=== PATIENT | female | born 1950 | race Caucasian/White ===

== ENCOUNTER 2016-08-14 10:38 | Day surgery (SDC) | payer MEDICARE, OTHER ==
--- NOTE | ~2016-08-14 | EGD ---
EGD REPORT [facility] [address] [address] NAME: SARIKA BURR : [birth year] STATUS : REG [facility]#: [id number] AGE: 65 ADM/REG DATE : 08/14/16 MR#: [id number] REPORT SERV DATE: 08/14/16 DICTATED BY: ANNETTE RIVERA DATE: 08/14/16 REPORT STATUS : Draft TRANSCRIBED BY: [facility] DATE: 08/14/16 Endoscopy Center Patient Name: Sarika Burr Date of : 1950 Attending MD: DIANA RIVERA MD Procedure Date No Time: 08/14/2016 Procedure: Colonoscopy Indications: Follow-up for history of adenomatous polyps in the colon Referring MD: DWIGHT SANTOS Medicines: See the Anesthesia note for documentation of the administered medications Complications: No immediate complications. Estimated blood loss: Minimal. Procedure: Pre-Anesthesia Assessment: - ASA Grade Assessment: III - A patient with severe systemic disease. - Prior to the procedure, a History and Physical was performed, and patient medications and allergies were reviewed. The patient's tolerance of previous anesthesia was also reviewed. The risks and benefits of the procedure and the sedation options and risks were discussed with the patient. All questions were answered, and informed consent was obtained. Prior Anticoagulants: The patient has taken no previous anticoagulant or antiplatelet agents. After reviewing the risks and benefits, the patient was deemed in satisfactory condition to undergo the procedure. After I obtained informed consent, the scope was passed under direct vision. Throughout the procedure, the patient's blood pressure, pulse, and oxygen saturations were monitored continuously. The PCF [id number] was introduced through the anus and advanced to the cecum, identified by appendiceal orifice and ileocecal valve. The ileocecal valve, appendiceal orifice and rectum were photographed. The entire colon was examined. The colonoscopy was performed without difficulty. The patient tolerated the procedure well. The quality of the bowel preparation was adequate. Findings: The perianal and digital rectal examinations were normal. A flat, sessile polyp was found in the cecum. The polyp was large in size. This was biopsied with a cold jumbo forceps for histology. Area was successfully injected with 2 mL Spot (carbon black) for drug delivery. EGD REPORT [facility] [id number] [place]. [address] NAME: SARIKA BURR : [birth year] STATUS : REG [facility]#: [id number] AGE: 65 ADM/REG DATE : 08/14/16 MR#: [id number] REPORT SERV DATE: 08/14/16 DICTATED BY: ANNETTE RIVERA DATE: 08/14/16 REPORT STATUS : Draft [facility]ANSCRIBED BY: [facility] DATE: 08/14/16 A sessile polyp was found in the sigmoid colon. The polyp was 7 mm in size. The polyp was removed with a cold snare. Resection and retrieval were complete. Non-bleeding internal hemorrhoids were found during retroflexion and were Grade I (internal hemorrhoids that do not prolapse). Impression: - One large polyp in the cecum. Biopsied. Injected. - One 7 mm polyp in the sigmoid colon. Resected and retrieved. - Non-bleeding internal hemorrhoids. Recommendation: - Patient has a contact number available for emergencies. The signs and symptoms of potential delayed complications were discussed with the patient. Return to normal activities tomorrow. Written discharge instructions were provided to the patient. - Discharge patient to home. - Continue present medications. - Await pathology results. - Refer to a surgeon. Procedure Code(s): --- Professional --- 58141, Colonoscopy, flexible, proximal to splenic flexure; with removal of tumor(s), polyp(s), or other lesion(s) by snare technique 85550, 59, Colonoscopy, flexible, proximal to splenic flexure; with biopsy, single or multiple 95673, Colonoscopy, flexible, proximal to splenic flexure; with directed submucosal injection(s), any substance Diagnosis Code(s): --- Professional --- D12.5, Benign neoplasm of sigmoid colon D12.0, Benign neoplasm of cecum K64.0, First degree hemorrhoids Z86.010, Personal history of colonic polyps CPT copyright 2013 [employer]. All rights reserved. The codes documented in this report are preliminary and upon information coder review may be revised to meet current compliance requirements. DIANA RIVERA MD 08/14/2016 12:13 PM This report has been signed electronically. EGD REPORT [facility] [address] [address] NAME: SARIKA BURR : [birth year] STATUS : REG [facility] PAT#: [id number] AGE: 65 ADM/REG DATE : 08/14/16 MR#: [id number] REPORT SERV DATE: 08/14/16 DICTATED BY: ANNETTE RIVERA DATE: 08/14/16 REPORT STATUS : Draft TRANSCRIBED BY: [employer] [facility] DATE: 08/14/16 Number of Addenda: 0 Note Initiated On: 08/14/2016 11:34 AM Scope Withdrawal Time 0 hours 13 minutes 39 seconds [address] [id number]
--- NOTE | ~2016-08-14 | EGD ---
EGD REPORT [facility] [address] [address] NAME: SARIKA BURR : [birth year] STATUS : REG [facility]#: [id number] AGE: 65 ADM/REG DATE : 08/14/16 MR#: [id number] REPORT SERV DATE: 08/14/16 DICTATED BY: ANNETTE RIVERA DATE: 08/14/16 REPORT STATUS : Draft TRANSCRIBED BY: [facility] DATE: 08/14/16 Endoscopy Center Patient Name: Sarika Burr Date of : 1950 Attending MD: DIANA RIVERA MD Procedure Date No Time: 08/14/2016 Procedure: Upper GI endoscopy Indications: Gastro-esophageal reflux disease, gastric polyps Referring MD: DWIGHT SANTOS Medicines: See the Anesthesia note for documentation of the administered medications Complications: No immediate complications. Estimated blood loss: Minimal. Procedure: Pre-Anesthesia Assessment: - ASA Grade Assessment: III - A patient with severe systemic disease. - Prior to the procedure, a History and Physical was performed, and patient medications and allergies were reviewed. The patient's tolerance of previous anesthesia was also reviewed. The risks and benefits of the procedure and the sedation options and risks were discussed with the patient. All questions were answered, and informed consent was obtained. Prior Anticoagulants: The patient has taken no previous anticoagulant or antiplatelet agents. After reviewing the risks and benefits, the patient was deemed in satisfactory condition to undergo the procedure. After obtaining informed consent, the endoscope was passed under direct vision. Throughout the procedure, the patient's blood pressure, pulse, and oxygen saturations were monitored continuously. The GIF H190 [id number] was introduced through the mouth, and advanced to the third part of duodenum. The upper GI endoscopy was accomplished without difficulty. The patient tolerated the procedure well. Findings: The examined duodenum was normal. A few small sessile polyps with no stigmata of recent bleeding were found in the gastric body. These polyps were removed with a cold biopsy forceps. Resection and retrieval were complete. A 3 cm hiatus hernia was present. The examined esophagus was normal. Impression: - Normal examined duodenum. EGD REPORT [address] [address] NAME: SARIKA BURR : [birth year] STATUS : REG [facility] PAT#: [id number] AGE: 65 ADM/REG DATE : 08/14/16 MR#: [id number] REPORT SERV DATE: 08/14/16 DICTATED BY: ANNETTE RIVERA DATE: 08/14/16 REPORT STATUS : Draft TRANSCRIBED BY: [employer] [facility] DATE: 08/14/16 - A few gastric polyps. Resected and retrieved. - Hiatus hernia. - Normal esophagus. Recommendation: - Patient has a contact number available for emergencies. The signs and symptoms of potential delayed complications were discussed with the patient. Return to normal activities tomorrow. Written discharge instructions were provided to the patient. - Regular diet. - Discharge patient to home. - Continue present medications. - Await pathology results. Procedure Code(s): --- Professional --- 67213, Esophagogastroduodenoscopy, flexible, transoral; with biopsy, single or multiple Diagnosis Code(s): --- Professional --- K31.7, Polyp of stomach and duodenum K44.9, Diaphragmatic hernia without obstruction or gangrene K21.9, Gastro-esophageal reflux disease without esophagitis CPT copyright 2013 [employer] [employer]. All rights reserved. The codes documented in this report are preliminary and upon commercial sales specialist review may be revised to meet current compliance requirements. DIANA RIVERA MD 08/14/2016 12:23 PM This report has been signed electronically. Number of Addenda: 0 Note Initiated On: 08/14/2016 12:12 PM Scope Withdrawal Time 0 hours 0 minutes 0 seconds [address] [id number]
[~2016-08-14 10:38] MED LIST: ASA5GR PO; ASACOL PO; BIO-IDENTICAL HORMON; CITRACAL PO; COMP10B PO; COZ50 PO; DEX4 PO; DSS PO; EFFEX75 PO; ESTRACE2 MG PO; FEMARA PO; IRON PO; K-99 PO; MAGOX4 PO; NEUR100 PO; PAX10 PO; PCET PO; PREV30 PO; PRIN10 PO; PROMETRIUM PO; PYR100B PO; SEPTRA1 TAB PO; SYN112 PO; TYLENOL ARTH650 MG PO; ULTRAM50 PO; VIT E PO; VITAMIN D400 UNI1 PO; VYTORIN 10/20 T1 TAB PO; ZANTAC 150 PO; ZOFRAN8 PO
== END 2016-08-14 23:59 | disposition home or self-care (01) ==
LOC: DMU 10:38
PROVIDERS: Internal Medicine Gastroenterology
PROC: 0DB68ZZ Excision of Stomach, Via Natural or Artificial Opening Endoscopic (ICD-10-PCS; principal; 2016-08-14 12:30)
PROC: 0DBN8ZZ Excision of Sigmoid Colon, Via Natural or Artificial Opening Endoscopic (ICD-10-PCS; 2016-08-14 12:30)
PROC: 3E0H8GC Introduction of Other Therapeutic Substance into Lower GI, Via Natural or Artificial Opening Endoscopic (ICD-10-PCS; 2016-08-14 12:30)
PROC: 0DBH8ZX Excision of Cecum, Via Natural or Artificial Opening Endoscopic, Diagnostic (ICD-10-PCS; 2016-08-14 12:30)
DX: D12.0 Benign neoplasm of cecum (principal); D12.5 Benign neoplasm of sigmoid colon; K31.7 Polyp of stomach and duodenum; K44.9 Diaphragmatic hernia without obstruction or gangrene; K64.0 First degree hemorrhoids; K51.90 Ulcerative colitis, unspecified, without complications; K21.9 Gastro-esophageal reflux disease without esophagitis; C56.9 Malignant neoplasm of unspecified ovary; C79.81 Secondary malignant neoplasm of breast; I10 Essential (primary) hypertension; E03.9 Hypothyroidism, unspecified; E78.5 Hyperlipidemia, unspecified; E78.00 Pure hypercholesterolemia, unspecified; D64.9 Anemia, unspecified; M19.90 Unspecified osteoarthritis, unspecified site; M41.9 Scoliosis, unspecified; Z90.710 Acquired absence of both cervix and uterus; Z98.51 Tubal ligation status; Z86.010 Personal history of colon polyps; Z85.43 Personal history of malignant neoplasm of ovary; Z92.21 Personal history of antineoplastic chemotherapy; Z79.891 Long term (current) use of opiate analgesic; Z79.899 Other long term (current) drug therapy; Z98.890 Other specified postprocedural states
CPT/HCPCS: 88305; 88341; 88342